=== PATIENT | male | born 1980 | race Asian ===

== ENCOUNTER 2017-01-02 19:21 | Emergency (ER) | payer OTHER ==
[~2017-01-02] VITALS: Ht 172.7 cm; Wt 99.8 kg
[~2017-01-02 19:21] MED LIST: HYDR-2678 PO; OXYC-323 PO; SULF1TAB24 PO
[2017-01-02 19:35] VITALS: BP 158/95
--- NOTE | 2017-01-02 20:04 | PHYS DOC ---
Past Medical History Past Medical History: Other Additional Past Medical Histor: kidney stones Past Surgical History: Other Additional Past Surgical Histo: right kidney stone removal Alcohol Use: Occasionally Drug Use: None Adult General Chief Complaint Chief Complaint: FEVER HPI HPI Patient is a 36 year old male who presents with fever, cough, headache, sore throat for 3 days. Took ibuprofen at 1400 today. Denies abd pain, n/v, shortness of air or accompanying symptoms. reports coworkers sick with same symptoms this week. Review of Systems Review of Systems Constitutional: Fever 3 days Eyes: Denies change in visual acuity, redness, or eye pain HENT: Runny nose, sore throat 3 days Respiratory: Cough Cardiovascular: No additional information not addressed in HPI [] GI: Denies abdominal pain, nausea, vomiting, bloody stools or diarrhea [] : Denies dysuria or hematuria Musculoskeletal: Denies back pain or joint pain Integument: Denies rash or skin lesions Neurologic: Denies headache, focal weakness or sensory changes Endocrine: Denies polyuria or polydipsia [] Allergies Allergies Allergies Coded Allergies Type Severity Reaction Last Updated Verified No Known Drug Allergies 02/20/16 No Physical Exam Physical Exam Constitutional: Well developed, well nourished, no acute distress, non-toxic appearance. HENT: Normocephalic, atraumatic, bilateral external ears normal, oropharynx moist, no oral exudates, nose normal. B/l tonsils erythematous Eyes: PERRLA, EOMI, conjunctiva normal, no discharge. Neck: Normal range of motion, no tenderness, supple, no stridor. Cardiovascular:Heart rate regular rhythm, no murmur Lungs & Thorax: Bilateral breath sounds clear to auscultation Abdomen: Bowel sounds normal, soft, no tenderness, no masses, no pulsatile masses. Skin: Warm, dry, no erythema, no rash. Back: No tenderness, no CVA tenderness. Extremities: No tenderness, no cyanosis, no clubbing, ROM intact, no edema. Neurologic: Alert and oriented X 3, normal motor function, normal sensory function, no focal deficits noted. Psychologic: Affect normal, judgement normal, mood normal. [] Current Patient Data Vital Signs Vital Signs Date Time Temp Pulse Resp B/P Pulse Ox O2 Delivery O2 Flow Rate FiO2 01/02/17 19:35 97.5 68 20 95 Room Air 97.5 Lab Values Laboratory Tests Test 3/1/17 20:04 Influenza Type A Antigen Negative (NEGATIVE) Influenza Type B Antigen Negative (NEGATIVE) EKG EKG [] Radiology/Procedures Radiology/Procedures [] Impressions: 1. Viral illness Course & Med Decision Making Course & Med Decision Making Pertinent Labs and Imaging studies reviewed. (See chart for details) [] Dragon Disclaimer Dragon Disclaimer This electronic medical record was generated, in whole or in part, using a voice recognition dictation system. Departure Departure Impression: Primary Impression: Viral illness Disposition: HOME, SELF-CARE Condition: STABLE Referrals: BOOKER VALVERDE MD (PCP) Patient Instructions: Viral Infections, [id number] Additional Instructions: Continue the Ibuprofen and/or Tylenol for fever. Follow up with primary doctor in 1-2 days. Return if problems or concerns TAMIKA LARSEN APRN Jan 02, 2017 20:04
[2017-01-02 20:42] LABS: OBC FLU VALID
[2017-01-03 07:42] LABS: NEGATIVE OBC STREP NEG; POSITIVE OBC STREP POS
== END 2017-01-02 21:23 | disposition home or self-care (01) ==
LOC: ER 19:21
DX: B34.9 Viral infection, unspecified (principal)
CPT/HCPCS: 87070; 87804; 87880; 99284